=== PATIENT | female | born 1975 | race Two or more races ===

== ENCOUNTER 2023-11-28 14:20 | Emergency (ER) | payer MEDICAID, OTHER ==
[~2023-11-28] VITALS: Ht 165.1 cm; Wt 75.0 kg
[2023-11-28] MEDS: cloNIDine HCL 0.1 MG TAB PO ONE (15:04)
[2023-11-28 15:33] LABS: Alanine Aminotransferase 30 U/L (7-40); Alkaline Phosphatase 73 U/L (46-116); Calcium 9.8 mg/dL (8.5-10.1)
[2023-11-28 15:34] LABS: Albumin 4.8 g/dL (3.2-4.8); Anion Gap 4 (5-15); Aspartate Aminotransferase 30 U/L (13-40); Bilirubin, Total 0.5 mg/dL (0.2-1.0); Blood Urea Nitrogen 12 mg/dL (9-23); Carbon Dioxide 29 mmol/L (20-30); Chloride 106 mmol/L (98-107); Glucose 78 mg/dL (74-106); Potassium 4.1 mmol/L (3.5-5.1); Sodium 139 mmol/L (136-145); Total Protein 7.1 g/dL (5.7-8.2)
[2023-11-28 15:44] LABS: Basophils # (auto) 0.1 10 ^3/uL (0-0.2); Basophils % (auto) 1.2 % (0.0-2.0); Eosinophils # (auto) 0.2 10 ^3/uL (0-0.8); Eosinophils % (auto) 3.2 % (0.0-7.0); Hematocrit 39.9 % (36.0-46.0); Hemoglobin 13.7 g/dL (12.2-16.2); Lymphocytes # (auto) 1.7 10 ^3/uL (0.4-5.4); Lymphocytes % (auto) 26.9 % (10.0-50.0); Mean Corpuscular Hemoglobin 31.1 pg (28.0-32.0); Mean Corpuscular Hgb Conc. 34.2 g/dL (32.0-36.0); Mean Corpuscular Volume 90.9 fL (80.0-100.0); Monocytes # (auto) 0.7 10 ^3/uL (0-1.3); Monocytes % (auto) 11.5 % (0.0-12.0); Neutrophils # (auto) 3.7 10 ^3/uL (1.6-8.6); Neutrophils % (auto) 57.2 % (37.0-80.0); Nucleated Red Blood Cells % 0.1 %; Red Blood Cells 4.39 10^6/uL (4.0-5.20); Red Cell Distribution Width 13.2 % (11.8-14.3); White Blood Cell 6.4 10^3/uL (4.4-10.8)
[2023-11-28] MEDS ORDERED: MECL25CH85 PO (16:05)
[2023-11-28 16:38] VITALS: BP 138/78; PULSE 72; RESP 18; O2SAT 96
== END 2023-11-28 16:42 | disposition home or self-care (01) ==
LOC: ER 14:20
DX: R42 Dizziness and giddiness (principal); I16.0 Hypertensive urgency; M25.511 Pain in right shoulder; E78.5 Hyperlipidemia, unspecified; Z90.49 Acquired absence of other specified parts of digestive tract; Z88.8 Allergy status to other drugs, medicaments and biological substances
CPT/HCPCS: 36415; 70450; 80053; 84484; 85025; 93005

== ENCOUNTER 2024-10-23 10:04 | Emergency (ER) | payer MEDICAID ==
[~2024-10-23] VITALS: Ht 165.1 cm; Wt 79.5 kg
[~2024-10-23 10:04] MED LIST: MECL25CH85 PO
[2024-10-23 10:41] VITALS: PULSE 80; RESP 17; O2SAT 97
[2024-10-23] MEDS: cloNIDine HCL 0.1 MG TAB PO ONE ×2 (10:45→11:56)
[2024-10-23] MEDS: HYDROcodone-ACET 10/325MG TAB PO ONE (10:46)
--- NOTE | 2024-10-23 11:10 | ED.PDOC ---
HPI Comments 49y F who presents to the ED for chief complaint of high blood pressure. Pt states she was at chiropractor and states during her 2 hour appt and states had blood pressure checked multiple times and states it continued to get higher values and after her appt, pt came to the ED for further evaluation. Pt states she has history of HTN and states her BP values have been high at home fo the past 2 weeks despite taking her 2 blood pressure medications. Pt in the ED, states she is having headache and R sided neck pain. Pt in the ED, noted BP of 203/117 with all other vitals in normal range. Pt otherwise denies any other symptoms at this time. Chief Complaint: High Blood Pressure Time Seen by MD: 11:08 Primary Care Provider: NONE Reviewed Notes: Nurses Notes Allergies: Coded Allergies: Butaperazine (Verified Allergy, Severe, 11/28/23) Uncoded Allergies: SURGICAL TAPE (Allergy, Severe, 11/28/23) Home Meds Active Scripts Amlodipine Besylate (Amlodipine Besylate) 5 Mg Tab, 1 TAB PO DAILY for 90 Days, #90 TAB 5 Refills Prov:NACHO CARVALHO MD 10/23/24 Meclizine HCl (Antivert) 25 Mg Chw, 25 MG PO BID for 5 Days, #10 TAB.CHEW Prov:MYRIAM HUITRON MD 11/28/23 Information Source: Patient Mode of Arrival: Ambulatory Brought in by: self Past Medical History PAST MEDICAL HISTORY: Arthritis, High Lipids, HTN Surgical History: Cholecystectomy, Tubal Ligation 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 HOLE DIGGER History: No Pertinent POST HOLE DIGGER History Family History Family History: Reviewed,noncontributory to illness Social History Smoker: Non-Smoker Alcohol: Denies ETOH Use Drugs: Denies Drug Use Lives In: Home Constitutional: denies: chills, diaphoresis, fatigue, fever, malaise, sweats, weakness, others EENTM: denies: blurred vision, double vision, ear bleeding, ear discharge, ear drainage, ear pain, ear ringing, eye pain, eye redness, hearing loss, mouth pain, mouth swelling, nasal discharge, nose bleeding, nose congestion, nose pain, photophobia, tearing, throat pain, throat swelling, voice changes, others Respiratory: denies: cough, hemoptysis, orthopnea, SOB at rest, shortness of breath, SOB with excertion, stridor, wheezing, others Cardiovascular: denies: chest pain, dizzy spells, diaphoresis, Dyspnea on exertion, edema, irregular heart beat, left arm pain, lightheadedness, palpitations, PND, syncope, others Gastrointestinal: denies: abdomen distended, abdominal pain, blood streaked bowels, constipated, diarrhea, dysphagia, difficulty swallowing, hematemesis, melena, nausea, poor appetite, poor fluid intake, rectal bleeding, rectal pain, vomiting, others Genitourinary: denies: abnormal vagina bleeding, burning, dyspareunia, dysuria, flank pain, frequency, hematuria, incontinence, pain, , vagina discharge, urgency, others Neurological: reports: headache; denies: dizziness, fainting, left sided numbness, left sided weakness, numbness, paresthesia, pre-existing deficit, right sided numbness, right sided weakness, seizure, speech problems, tingling, tremors, weakness, others Musculoskeletal: reports: neck pain; denies: back pain, gout, joint pain, joint swelling, muscle pain, muscle stiffness, others Integumetry: denies: bruises, change in color, change in hair/nails, dryness, laceration, lesions, lumps, rash, wounds, others Allergic/Immunocompromised: denies: Difficulty Healing, Frequent Infections, Hives, Itching, others Hematologic/Lymphatic: denies: anemia, blood clots, easy bleeding, easy bruising, swollen glands, others Endocrine: denies: excessive hunger, excessive sweating, excessive thirst, excessive urination, flushing, intolerance to cold, intolerance to heat, unexplained weight gain, unexplained weight loss, others Psychiatric: denies: anxiety, bipolar disorder, depression, hopeless, panic disorder, schizophrenia, sleepless, suicidal, others All Other Systems: Reviewed and Negative Physical Exam General Appearance: Mild Distress, Normal HEENT: Normal ENT Inspection, Pharynx Normal, TMs Normal Neck: Full Range of Motion, Non-Tender, Normal, Normal Inspection Respiratory: Chest Non-Tender, Lungs Clear, No Accessory Muscle Use, No Respiratory Distress, Normal Breath Sounds Cardiovascular: No Edema, No JVD, No Murmur, No Gallop, Normal Peripheral Pulses, Regular Rate/Rhythm Breast Exam: Deferred Gastrointestinal: No Organomegaly, Non Tender, No Pulsatile Mass, Normal Bowel Sounds, Soft Genitalia: Deferred Pelvic: Deferred Rectal: Deferred Extremities: No calf tenderness, Normal capillary refill, Normal inspection, Normal range of motion, Non-tender, No pedal edema Musculoskeletal : Apperance: Normal Neurologic: Alert, hip hop performers II-XII nml as Tested, No Motor Deficits, Normal Affect, Normal Mood, No Sensory Deficits Cerebellar Function: Normal Reflexes: Normal Skin: Dry, Normal Color, Warm Lymphatic: No Adenopathy Was a procedure done? Was a procedure done?: No CP Differential Dx Differential Diagnosis: Angina, Atrial Dysrhythmia, PVC's Differential Diagnosis: HTN Essential, HTN Accelerated, HTN Encephalopathy, Medical NonCompliance X-Ray, Labs, Meds, VS Vital Signs Date Time Temp Pulse Resp B/P (MAP) Pulse Ox O2 Delivery O2 Flow Rate FiO2 10/23/24 11:56 153/103 10/23/24 11:48 98.4 70 18 153/103 (120) 97 98.4 10/23/24 11:45 153/103 10/23/24 10:45 180/122 10/23/24 10:41 80 17 97 Room Air* 0 21 10/23/24 10:38 98.0 80 17 188/120 (142) 97 98.0 10/23/24 10:35 75 10/23/24 10:29 98.2 84 20 203/117 (145) 98 Lab Test 10/23/24 10:53 Range/Units White Blood Count 6.7 4.4-10.8 10^3/uL Red Blood Count 4.24 4.0-5.20 10^6/uL Hemoglobin 13.4 12.2-16.2 g/dL Hematocrit 38.5 36.0-46.0 % Mean Corpuscular Volume 90.8 80.0-100.0 fL Mean Corpuscular Hemoglobin 31.7 28.0-32.0 pg Mean Corpuscular Hemoglobin Concent 34.9 32.0-36.0 g/dL Red Cell Distribution Width 13.4 11.8-14.3 % Platelet Count 335 140-450 10^3/uL Mean Platelet Volume 7.3 6.9-10.8 fL Neutrophils (%) (Auto) 65.1 37.0-80.0 % Lymphocytes (%) (Auto) 23.8 10.0-50.0 % Monocytes (%) (Auto) 9.4 0.0-12.0 % Eosinophils (%) (Auto) 0.7 0.0-7.0 % Basophils (%) (Auto) 1.0 0.0-2.0 % Neutrophils # (Auto) 4.4 1.6-8.6 10 ^3/uL Lymphocytes # (Auto) 1.6 0.4-5.4 10 ^3/uL Monocytes # (Auto) 0.6 0-1.3 10 ^3/uL Eosinophils # (Auto) 0 0-0.8 10 ^3/uL Basophils # (Auto) 0.1 0-0.2 10 ^3/uL Nucleated Red Blood Cells 0.0 % Sodium Level 139 136-145 mmol/L Potassium Level 3.9 3.5-5.1 mmol/L Chloride Level 106 98-107 mmol/L Carbon Dioxide Level 26 20-31 mmol/L Anion Gap 7 5-15 Blood Urea Nitrogen 11 9-23 mg/dL Creatinine 0.71 0.550-1.02 mg/dL Glomerular Filtration Rate Calc 103 >90 mL/min BUN/Creatinine Ratio 15.5 10.0-20.0 Serum Glucose 91 74-106 mg/dL Calcium Level 9.9 8.7-10.4 mg/dL Total Bilirubin 0.5 0.2-1.0 mg/dL Aspartate Amino Transferase (AST) 19 13-40 U/L Alanine Aminotransferase (ALT) 27 7-40 U/L Alkaline Phosphatase 82 46-116 U/L Troponin I High Sensitivity 12 </=34 ng/L Total Protein 7.5 5.7-8.2 g/dL Albumin 4.7 3.2-4.8 g/dL Current Medications Medications (Trade) Dose Ordered Sig/Jaycee Route Start Time Stop Time Status Last Admin Acetaminophen/ Hydrocodone Bitart (Fate 10/325MG Tab) 1 tab ONCE ONCE PO 10/23/24 10:45 10/23/24 10:46 DC 10/23/24 10:46 Clonidine HCl (Catapres Tablet) 0.2 mg ONCE ONCE PO 10/23/24 10:45 10/23/24 10:46 DC 10/23/24 10:45 Clonidine HCl (Catapres Tablet) 0.1 mg ONCE ONCE PO 10/23/24 12:00 10/23/24 12:01 DC 10/23/24 11:56 [facility] [address] [address] Ph: [phone] DIAGNOSTIC IMAGING Diagnostic Imaging Report : [id number] Signed PATIENT: CHAY DONALDSON ACCT: [id number] UNIT: [id number] : 1975 LOC: ER ROOM / BED: / AGE / SEX: 49 / F ADM STATUS: REG ER SERVICE 1035 ORDERING PHYSICIAN: NACHO CARVALHO MD PROCEDURE(s): HWOCT - HEAD WITHOUT CONTRAST REASON: severe headache ORDER NUMBER(s): [id number], ACCESSION NUMBER(s): [id number] EXAM: CT HEAD WITHOUT CONTRAST HISTORY: severe headache COMPARISON: CT HEAD WITHOUT CONTRAST on DOS: 11/28/23 TECHNIQUE: Axial images of the head were obtained and reformatted in coronal and sagittal planes. All CT scans at this medical facility are performed using dose modulation techniques as appropriate to a performed exam including the following: Automated exposure control was utilized; adjustment of the MA and/or KV according to patient size; and use of iterative reconstruction technique. CT Dose: CTDI volume is 60.55 mGy. Dose-length product is 1072.04 mGy*cm FINDINGS: There is no evidence of acute intracranial hemorrhage, mass, mass effect midline shift. There is no hydrocephalus or extra-axial fluid collection. Smith-white matter differentiation is maintained. The visualized paranasal sinuses and mastoid air cells are clear. The calvarium is intact. IMPRESSION: 1. No acute intracranial process. HS:Y ATED BY: FREDRICK DUBOSE MD DICTATED DATE/TIME: 10/23/24 1113 SIGNED BY: FREDRICK DUBOSE MD SIGNED DATE/TIME: 10/23/24 1113 CC: Time of 1ST Reevaluation: 11:40 Reevaluation 1ST: Unchanged Time of 2ND Reevaluation: 12:40 Reevaluation 2ND: Improved Patient Education/Counseling: Diagnosis, Treatment Family Education/Counseling: No Family Present Departure 1 Departure Time of Disposition: 12:40 Impression: Primary Impression: Hypertensive urgency Additional Impression: Headache Disposition: 01 HOME / SELF CARE / HOMELESS Condition: Stable e-Prescriptions Amlodipine Besylate (Amlodipine Besylate) 5 Mg Tab 1 TAB PO DAILY for 90 Days, #90 TAB 5 Refills Prov: NACHO CARVALHO MD 10/23/24 Discharged With: Self Critical Care Note Critical Care Time?: No Stability Stability form required: No Heart Score Heart Score: Heart Score Response (Comments) Value History Slightly Suspicious 0 EKG Normal 0 Age 45-64 1 Risk Factors 1 or 2 risk factors 1 Troponin Normal limit 0 Total 2 I personally scribed for NACHO CARVALHO MD ([email or web address]) on 10/23/24 at 11:10. Electronically submitted by Sofie Khalil ([email or web address]). I personally scribed for NACHO CARVALHO MD ([email or web address]) on 10/23/24 at 11:19. Electronically submitted by Sofie Khalil ([email or web address]). NACHO CARVALHO MD Oct 23, 2024 11:10
--- NOTE | 2024-10-23 11:15 | DVH ---
EXAM: CT HEAD WITHOUT CONTRAST HISTORY: severe headache COMPARISON: CT HEAD WITHOUT CONTRAST on DOS: 11/28/23 TECHNIQUE: Axial images of the head were obtained and reformatted in coronal and sagittal planes. All CT scans at this medical facility are performed using dose modulation techniques as appropriate t o a performed exam including the following: Automated exposure control was utilized; adjustment of th e MA and/or KV according to patient size; and use of iterative reconstruction technique. CT Dose: CTDI volume is 60.55 mGy. Dose-length product is 1072.04 mGy*cm FINDINGS: There is no evidence of acute intracranial hemorrhage, mass, mass effect midline shift. There is no h ydrocephalus or extra-axial fluid collection. Smith-white matter differentiation is maintained. The visualized paranasal sinuses and mastoid air cells are clear. The calvarium is intact. IMPRESSION: 1. No acute intracranial process. HS:Y
[2024-10-23 11:31] LABS: Basophils # (auto) 0.1 10 ^3/uL (0-0.2); Eosinophils # (auto) 0 10 ^3/uL (0-0.8); Eosinophils % (auto) 0.7 % (0.0-7.0); Hematocrit 38.5 % (36.0-46.0); Hemoglobin 13.4 g/dL (12.2-16.2); Lymphocytes # (auto) 1.6 10 ^3/uL (0.4-5.4); Lymphocytes % (auto) 23.8 % (10.0-50.0); Mean Corpuscular Hemoglobin 31.7 pg (28.0-32.0); Mean Corpuscular Hgb Conc. 34.9 g/dL (32.0-36.0); Mean Corpuscular Volume 90.8 fL (80.0-100.0); Monocytes # (auto) 0.6 10 ^3/uL (0-1.3); Monocytes % (auto) 9.4 % (0.0-12.0); Neutrophils # (auto) 4.4 10 ^3/uL (1.6-8.6); Neutrophils % (auto) 65.1 % (37.0-80.0); Platelet Count (auto) 335 10^3/uL (140-450); Red Blood Cells 4.24 10^6/uL (4.0-5.20); Red Cell Distribution Width 13.4 % (11.8-14.3); White Blood Cell 6.7 10^3/uL (4.4-10.8)
[2024-10-23 11:40] LABS: Alanine Aminotransferase 27 U/L (7-40); Albumin 4.7 g/dL (3.2-4.8); Alkaline Phosphatase 82 U/L (46-116); Anion Gap 7 (5-15); Aspartate Aminotransferase 19 U/L (13-40); BUN/Creatinine Ratio 15.5 (10.0-20.0); Blood Urea Nitrogen 11 mg/dL (9-23); Calcium 9.9 mg/dL (8.7-10.4); Carbon Dioxide 26 mmol/L (20-31); Chloride 106 mmol/L (98-107); Glucose 91 mg/dL (74-106); Potassium 3.9 mmol/L (3.5-5.1); Sodium 139 mmol/L (136-145)
[2024-10-23 11:41] LABS: Bilirubin, Total 0.5 mg/dL (0.2-1.0); Total Protein 7.5 g/dL (5.7-8.2)
[2024-10-23 11:48] VITALS: BP 153/103; PULSE 70; RESP 18; TEMP 98.4; O2SAT 97
[2024-10-23] MEDS ORDERED: AMLO1TAB22 PO (12:00)
--- NOTE | 2024-10-23 22:20 | ECG ---
[facility] Test Date: 2024-10-23 Test Time: 10:35:23 Pat Name: CHAY DONALDSON Department: ER Room: Gender: F Emergency Medical Technician/Driver: OSWALD : 1975 Requested By: NACHO CARVALHO Order Number: [id number] Reading MD: Vance Botello Measurements Intervals [place] Rate: 75 P: 77 SC: 120 QRS: 91 QRSD: 101 T: -4 QT: 413 QTc: 462 Interpretive Statements Sinus rhythm Consider right ventricular hypertrophy Borderline T abnormalities, diffuse leads Baseline wander in lead(s) V5,V6 Electronically Signed On 10-24-2024 8:54:56 PST by Vance Botello Please click the below link to view image of tracing.
== END 2024-10-23 12:14 | disposition home or self-care (01) ==
LOC: ER 10:04
DX: I16.0 Hypertensive urgency (principal); R51.9 Headache, unspecified; M19.90 Unspecified osteoarthritis, unspecified site; M54.2 Cervicalgia; I10 Essential (primary) hypertension; E78.5 Hyperlipidemia, unspecified; Z90.49 Acquired absence of other specified parts of digestive tract; Z98.51 Tubal ligation status; Z88.8 Allergy status to other drugs, medicaments and biological substances
CPT/HCPCS: 36415; 70450; 80053; 84484; 85025; 93005

== ENCOUNTER 2024-12-24 14:33 | Emergency (ER) | payer MEDICAID ==
[~2024-12-24] VITALS: Ht 165.1 cm; Wt 80.0 kg
[~2024-12-24 14:33] MED LIST changes: +AMLO1TAB22 PO
--- NOTE | 2024-12-24 15:00 | ED.PDOC ---
History of Present Illness HPI Comments 49 year old female presents to the ED with a chief complaint of back pain onset today. Patient states she has chronic back pain due to spinal stenosis, usually sees pain management monthly, has not been to pain management since October. She was trying to do housework today when she noticed back pain worsen. PMHx arthritis, HTN, HLD. Denies fall, injury, headache, dizziness, chest pain, shortness of breath. No other symptoms or modifying factors present at this time. Chief Complaint: Back Pain Time Seen by MD: 14:55 Primary Care Provider: Stephanie Reviewed Notes: Medications, Allergies Allergies: Coded Allergies: Butaperazine (Verified Allergy, Severe, 11/28/23) Uncoded Allergies: SURGICAL TAPE (Allergy, Severe, 11/28/23) Home Meds Active Scripts Hydrocodone-Acetaminophen (Hydrocodone Bitartrate/AC 5-325 mg) 1 Tab Tab, 1 TAB PO DAILY for 7 Days, #7 TAB Prov:MIRTHA CORREA MD 12/24/24 Amlodipine Besylate (Amlodipine Besylate) 5 Mg Tab, 1 TAB PO DAILY for 90 Days, #90 TAB 5 Refills Prov:NACHO CARVALHO MD 10/23/24 Meclizine HCl (Antivert) 25 Mg Chw, 25 MG PO BID for 5 Days, #10 TAB.CHEW Prov:MYRIAM HUITRON MD 11/28/23 Information Source: Patient Mode of Arrival: Ambulatory Severity: Moderate Timing: Hours Duration: Since onset Prehospital treatment: None Past Medical History PAST MEDICAL HISTORY: Arthritis, High Lipids, HTN Surgical History: Cholecystectomy, Tubal Ligation 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 History: No Pertinent 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 History Family History Family History: Reviewed,noncontributory to illness Social History Smoker: Non-Smoker Alcohol: Denies ETOH Use Drugs: Denies Drug Use Lives In: Home Constitutional: denies: chills, diaphoresis, fatigue, fever, malaise, sweats, weakness, others EENTM: denies: blurred vision, double vision, ear bleeding, ear discharge, ear drainage, ear pain, ear ringing, eye pain, eye redness, hearing loss, mouth pain, mouth swelling, nasal discharge, nose bleeding, nose congestion, nose pain, photophobia, tearing, throat pain, throat swelling, voice changes, others Respiratory: denies: cough, hemoptysis, orthopnea, SOB at rest, shortness of breath, SOB with excertion, stridor, wheezing, others Cardiovascular: denies: chest pain, dizzy spells, diaphoresis, Dyspnea on exertion, edema, irregular heart beat, left arm pain, lightheadedness, palpitations, PND, syncope, others Gastrointestinal: denies: abdomen distended, abdominal pain, blood streaked bowels, constipated, diarrhea, dysphagia, difficulty swallowing, hematemesis, melena, nausea, poor appetite, poor fluid intake, rectal bleeding, rectal pain, vomiting, others Genitourinary: denies: abnormal vagina bleeding, burning, dyspareunia, dysuria, flank pain, frequency, hematuria, incontinence, pain, , vagina discharge, urgency, others Neurological: denies: dizziness, fainting, headache, left sided numbness, left sided weakness, numbness, paresthesia, pre-existing deficit, right sided numbness, right sided weakness, seizure, speech problems, tingling, tremors, weakness, others Musculoskeletal: reports: back pain; denies: gout, joint pain, joint swelling, muscle pain, muscle stiffness, neck pain, others Integumetry: denies: bruises, change in color, change in hair/nails, dryness, laceration, lesions, lumps, rash, wounds, others Allergic/Immunocompromised: denies: Difficulty Healing, Frequent Infections, Hives, Itching, others Hematologic/Lymphatic: denies: anemia, blood clots, easy bleeding, easy bruising, swollen glands, others Endocrine: denies: excessive hunger, excessive sweating, excessive thirst, excessive urination, flushing, intolerance to cold, intolerance to heat, unexplained weight gain, unexplained weight loss, others Psychiatric: denies: anxiety, bipolar disorder, depression, hopeless, panic disorder, schizophrenia, sleepless, suicidal, others All Other Systems: Reviewed and Negative Physical Exam General Appearance: Moderate Distress, Normal HEENT: Normal ENT Inspection, Pharynx Normal, TMs Normal Neck: Full Range of Motion, Non-Tender, Normal, Normal Inspection Respiratory: Chest Non-Tender, Lungs Clear, No Accessory Muscle Use, No Respiratory Distress, Normal Breath Sounds Cardiovascular: No Edema, No JVD, No Murmur, No Gallop, Normal Peripheral Pulses, Regular Rate/Rhythm Breast Exam: Deferred Gastrointestinal: No Organomegaly, Non Tender, No Pulsatile Mass, Normal Bowel Sounds, Soft Genitalia: Deferred Pelvic: Deferred Rectal: Deferred Extremities: No calf tenderness, Normal capillary refill, Normal inspection, Normal range of motion, Non-tender, No pedal edema Musculoskeletal : Apperance: Normal Neurologic: Alert, institutional cook II-XII nml as Tested, No Motor Deficits, Normal Affect, Normal Mood, No Sensory Deficits Cerebellar Function: Normal Reflexes: Normal Skin: Dry, Normal Color, Warm Peripheral Pulses: 3+ Radial (R), 3+ Radial (L) Lymphatic: No Adenopathy Was a procedure done? Was a procedure done?: No Differential Dx Considerations may include: Chronic pain syndrome Musculoskeletal pain X-Ray, Labs, Meds, VS Vital Signs Date Time Temp Pulse Resp B/P (MAP) Pulse Ox O2 Delivery O2 Flow Rate FiO2 12/24/24 15:42 80 16 126/63 12/24/24 15:17 Room Air* 0 21 12/24/24 15:16 98.4 78 15 125/81 (96) 100 98.4 12/24/24 15:12 78 15 125/81 12/24/24 14:50 97.9 86 14 135/86 (102) 97 97.9 Current Medications Medications (Trade) Dose Ordered Sig/Jaycee Route Start Time Stop Time Status Last Admin Hydromorphone HCl (Dilaudid Injection) 1 mg ONCE ONCE IM 12/24/24 15:00 12/24/24 15:02 DC 12/24/24 15:12 Carisoprodol (Soma Tablet) 350 mg ONCE ONCE PO 12/24/24 15:00 12/24/24 15:02 DC 12/24/24 15:11 Ondansetron HCl (Zofran) 4 mg ONCE ONCE IM 12/24/24 15:00 12/24/24 15:02 DC 12/24/24 15:12 Patient alert. Complaining of back pain. Vitals stable. Answering questions. Was given Dilaudid. Was given Soma. Was given Zofran. States that she is feeling much better. Chronic symptoms. No imaging was done because symptoms for chronic pain No recent trauma. No recent bending. No neurological symptoms. Good urine flow. Has good bowel movement. No leg swelling. No shortness a breath. No chest pain. No sign of sepsis. Was given prescription of [place]. Explained to the patient. Was told to follow up with pain specialist. Was told to follow up with her primary care physician. Was told to come back if there is any problem. Time of 1ST Reevaluation: 15:25 Reevaluation 1ST: Unchanged Patient Education/Counseling: Diagnosis, Treatment, Prognosis Family Education/Counseling: No Family Present Departure 1 Departure Time of Disposition: 16:58 Impression: Primary Impression: Lumbar sprain Qualified Codes: S33.5XXS - Sprain of ligaments of lumbar spine, sequela Additional Impression: Musculoskeletal pain Disposition: 01 HOME / SELF CARE / HOMELESS Condition: Good e-Prescriptions Hydrocodone-Acetaminophen (Hydrocodone Bitartrate/AC 5-325 mg) 1 Tab Tab 1 TAB PO DAILY for 7 Days, #7 TAB Prov: MIRTHA CORREA MD 12/24/24 Discharged With: Self Critical Care Note Critical Care Time?: No Stability Stability form required: No Heart Score Heart Score: Heart Score Response (Comments) Value History N/A 0 EKG N/A 0 Age N/A 0 Risk Factors N/A 0 Troponin N/A 0 Total 0 I personally scribed for MIRTHA CORREA MD ([email or web address]) on 12/24/24 at 15:00. Electronically submitted by Cecy Patiño ([email or web address]). I personally scribed for MIRTHA CORREA MD ([email or web address]) on 12/24/24 at 15:56. Electronically submitted by Cecy Patiño ([email or web address]). MIRTHA CORREA MD Dec 24, 2024 15:00
[2024-12-24] MEDS: CARISOPRODOL 350 MG TAB PO ONE (15:11)
[2024-12-24] MEDS: HYDROmorphone HCL 2 MG/ML VL/or syr IM ONE (15:12)
[2024-12-24] MEDS: ONDANSETRON HCL 4 MG/2 ML VIAL IM ONE (15:12)
[2024-12-24 15:16] VITALS: TEMP 98.4; O2SAT 100
[2024-12-24 15:42] VITALS: BP 126/63; PULSE 80; RESP 16
[2024-12-24] MEDS ORDERED: HYDR-4902 PO (16:59)
== END 2024-12-24 17:15 | disposition home or self-care (01) ==
LOC: ER 14:33
DX: S33.5XXA Sprain of ligaments of lumbar spine, initial encounter (principal); M19.90 Unspecified osteoarthritis, unspecified site; I10 Essential (primary) hypertension; E78.5 Hyperlipidemia, unspecified; Z90.49 Acquired absence of other specified parts of digestive tract; Z98.51 Tubal ligation status; Z88.8 Allergy status to other drugs, medicaments and biological substances; X58.XXXA Exposure to other specified factors, initial encounter; Y93.89 Activity, other specified; Y92.89 Other specified places as the place of occurrence of the external cause; Y99.8 Other external cause status
CPT/HCPCS: 96372; 99284; J1171; J2405

== ENCOUNTER 2025-01-15 10:18 | Emergency (ER) | payer MEDICAID ==
[~2025-01-15] VITALS: Ht 165.1 cm; Wt 80.0 kg
[~2025-01-15 10:18] MED LIST changes: +HYDR-4902 PO
--- NOTE | 2025-01-15 10:49 | ED.PDOC ---
SOB-HPI HPI Comments 49 year old female presents to the ED with a chief complaint of cough onset 3 days. Patient states she began experiencing cough, sore throat, RT ear pain for the past 3 days. Patient began experiencing fever 2 days ago. PMHx HTN, HLD, arthritis. Denies headache, dizziness, nausea, vomiting, diarrhea, abdominal pain, dysuria, hematuria chest pain. No other symptoms or modifying factors present at this time. 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: No Pertinent EFFICIENCY MINER BLASTING History Family History Family History: Reviewed,noncontributory to illness Social History Smoker: Non-Smoker Alcohol: Denies ETOH Use Drugs: Denies Drug Use Lives In: Home Constitutional: reports: fever; denies: chills, diaphoresis, fatigue, malaise, sweats, weakness, others EENTM: reports: ear pain, throat pain; denies: blurred vision, double vision, ear bleeding, ear discharge, ear drainage, ear ringing, eye pain, eye redness, hearing loss, mouth pain, mouth swelling, nasal discharge, nose bleeding, nose congestion, nose pain, photophobia, tearing, throat swelling, voice changes, others Respiratory: reports: cough; denies: hemoptysis, orthopnea, SOB at rest, shortness of breath, SOB with excertion, stridor, wheezing, others Cardiovascular: denies: chest pain, dizzy spells, diaphoresis, Dyspnea on exertion, edema, irregular heart beat, left arm pain, lightheadedness, palpitations, PND, syncope, others Gastrointestinal: denies: abdomen distended, abdominal pain, blood streaked bowels, constipated, diarrhea, dysphagia, difficulty swallowing, hematemesis, melena, nausea, poor appetite, poor fluid intake, rectal bleeding, rectal pain, vomiting, others Genitourinary: denies: abnormal vagina bleeding, burning, dyspareunia, dysuria, flank pain, frequency, hematuria, incontinence, pain, , vagina di scharge, urgency, others Neurological: denies: dizziness, fainting, headache, left sided numbness, left sided weakness, numbness, paresthesia, pre-existing deficit, right sided numbness, right sided weakness, seizure, speech problems, tingling, tremors, weakness, others Musculoskeletal: denies: back pain, gout, joint pain, joint swelling, muscle pain, muscle stiffness, neck pain, others Integumetry: denies: bruises, change in color, change in hair/nails, dryness, laceration, lesions, lumps, rash, wounds, others Allergic/Immunocompromised: denies: Difficulty Healing, Frequent Infections, Hives, Itching, others Hematologic/Lymphatic: denies: anemia, blood clots, easy bleeding, easy bruising, swollen glands, others Endocrine: denies: excessive hunger, excessive sweating, excessive thirst, excessive urination, flushing, intolerance to cold, intolerance to heat, unexplained weight gain, unexplained weight loss, others Psychiatric: denies: anxiety, bipolar disorder, depression, hopeless, panic disorder, schizophrenia, sleepless, suicidal, others All Other Systems: Reviewed and Negative Physical Exam General Appearance: Moderate Distress, Normal HEENT: Normal ENT Inspection, Pharynx Normal, TMs Normal Neck: Full Range of Motion, Non-Tender, Normal, Normal Inspection Respiratory: Chest Non-Tender, No Accessory Muscle Use, No Respiratory Distress, Other (Coarse breath sounds) Cardiovascular: No Edema, No JVD, No Murmur, No Gallop, Normal Peripheral Pulses, Regular Rate/Rhythm Breast Exam: Deferred Gastrointestinal: No Organomegaly, Non Tender, No Pulsatile Mass, Normal Bowel Sounds, Soft Genitalia: Deferred Pelvic: Deferred Rectal: Deferred Extremities: No calf tenderness, Normal capillary refill, Normal inspection, Normal range of motion, Non-tender, No pedal edema Musculoskeletal : Apperance: Normal Neurologic: Alert, public address systems mechanic II-XII nml as Tested, No Motor Deficits, Normal Affect, Normal Mood, No Sensory Deficits Cerebellar Function: Normal Reflexes: Normal Skin: Dry, Normal Color, Warm Peripheral Pulses: 3+ Radial (R), 3+ Radial (L) Lymphatic: No Adenopathy Was a procedure done? Was a procedure done?: No Differential Dx Differential Diagnosis: Anxiety, Asthma, Bronchitis, CHF, COPD X-Ray, Labs, Meds, VS Vital Signs Date Time Temp Pulse Resp B/P (MAP) Pulse Ox O2 Delivery O2 Flow Rate FiO2 01/15/25 10:40 99.3 83 17 135/86 (102) 96 99.3 Patient alert. No sign of any distress. Complaining of cough. Vitals stable. Throat examination shows mild erythema. Urine examination within normal limits pain Possible pneumonitis. Was given prescription of prednisolone Levaquin antibiotic. Reviewed her history. Chest x-ray reviewed does not show any acute process early inflammation. Explained to the patient. Was told to follow up with her primary care physician. Was told to come back if there is any problem. Time of 1ST Reevaluation: 10:54 Reevaluation 1ST: Unchanged Patient Education/Counseling: Diagnosis, Treatment, Prognosis Family Education/Counseling: No Family Present Additional Information The following tests were ordered, and results were reviewed by me: SACHIN CASSIDY I reviewed and agreed with the following test results read by other providers: SACHIN CHEST Nini discussed treatment and results with medical personnel and: Patient Comprehensive systems review obtained and negative except for what is stated in the HPI. Departure 1 Departure Time of Disposition: 10:51 Impression: Primary Impression: Pneumonitis Disposition: 01 HOME / SELF CARE / HOMELESS Condition: Good e-Prescriptions Levofloxacin Hemihydrate (LEVOFLOXACIN) 500 Mg Tab 500 MG PO DAILY for 7 Days, #7 MG Prov: MIRTHA CORREA MD 01/15/25 Prednisone (Prednisone) 10 Mg Tab 10 MG PO DAILY for 5 Days, #5 MG Prov: MIRTHA CORREA MD 01/15/25 Discharged With: Self Critical Care Note Critical Care Time?: No Stability Stability form required: No Heart Score Heart Score: Heart Score Response (Comments) Value History N/A 0 EKG N/A 0 Age N/A 0 Risk Factors N/A 0 Troponin N/A 0 Total 0 I personally scribed for MIRTHA CORREA MD ([email or web address]) on 01/15/25 at 10:49. Electronically submitted by Cecy Patiño ([email or web address]). I personally scribed for MIRTHA CORREA MD ([email or web address]) on 01/15/25 at 11:15. Electronically submitted by Cecy Patiño ([email or web address]). MIRTHA CORREA MD Jan 15, 2025 10:49
[2025-01-15] MEDS ORDERED: PRED10TA PO (10:52)
[2025-01-15] MEDS ORDERED: LEVO500T91 PO (10:52)
--- NOTE | 2025-01-15 11:30 | DVH ---
EXAM: XY CHEST PORTABLE Indication: sob Technique: Single frontal view of the chest was obtained Comparison: None FINDINGS: Lines and Tubes: None Lungs: No focal consolidation. Pleura: No effusion. No pneumothorax. Cardiomediastinal contours: Unremarkable Bones: No acute osseous abnormality. IMPRESSION: No acute cardiopulmonary disease.
[2025-01-15 12:00] VITALS: BP 135/85; PULSE 77; RESP 18; TEMP 98.1; O2SAT 95
== END 2025-01-15 12:15 | disposition home or self-care (01) ==
LOC: ER 10:18
DX: J98.4 Other disorders of lung (principal); M19.90 Unspecified osteoarthritis, unspecified site; I10 Essential (primary) hypertension; E78.5 Hyperlipidemia, unspecified; Z98.51 Tubal ligation status; Z90.49 Acquired absence of other specified parts of digestive tract
CPT/HCPCS: 71045